=== PATIENT | male | born 1960 | race Caucasian/White ===

== ENCOUNTER 2017-02-28 09:00 | Inpatient (IN) | payer OTHER ==
[~2017-02-28] VITALS: Ht 188 cm; Wt 95.0 kg
[2017-02-28] MEDS ORDERED: ONDANSETRON 2MG/ML, 2ML ONE (10:37)
[2017-02-28] MEDS ORDERED: DEXAMETHASONE 4 MG/ML, 1ML ONE (10:37)
[2017-02-28] MEDS ORDERED: PROPOFOL 10 MG/ML, 20ML ONE (10:37)
[2017-02-28] MEDS ORDERED: CEFAZOLIN 1,000 MG ONE (10:37)
[2017-02-28] MEDS ORDERED: ROCURONIUM 10 MG/ML ONE (10:37)
[2017-02-28] MEDS ORDERED: MIDAZOLAM 1 MG/ML, 2ML ONE (15:00)
[2017-02-28] MEDS ORDERED: FENTANYL PF 250 MCG/5ML ONE (15:00)
[2017-02-28 15:26] VITALS: BP 130/85
[2017-02-28] MEDS ORDERED: BUPIVACAINE/PF-EPI 0.5% 1:200K ONE (16:15)
[2017-02-28] MEDS ORDERED: THROMBIN 5,000 UNIT VIAL TP ONE (16:16)
[2017-02-28] MEDS ORDERED: BACITRACIN 50,000 UNIT ONE (16:16)
[2017-02-28] MEDS ORDERED: PROMETHAZINE 25 MG/ML, 1ML IV PRN (17:30)
[2017-02-28] MEDS ORDERED: LABETALOL 5MG/ML, 20ML IV PRN (17:30)
[2017-02-28] MEDS ORDERED: ONDANSETRON 2MG/ML, 2ML IVPush PRN ×2 (17:30→18:30)
[2017-02-28] MEDS ORDERED: OXYcodone 5 MG/5 ML ORAL.SOL UDC PO PRN (17:30)
[2017-02-28] MEDS ORDERED: MEPERIDINE/PF 25MG/0.5ML IVPush PRN (17:30)
[2017-02-28] MEDS ORDERED: ACETAMINOPHEN 325 MG TABLET PO PRN (17:30)
[2017-02-28] MEDS ORDERED: hydrALAzine 20 MG/ML, 1ML IV PRN (17:30)
[2017-02-28] MEDS: PLEASE ENTER ALLERGIES MC SCH ×2 (18:00)
[2017-02-28] MEDS ORDERED: morphine SULFATE 10 MG/ML, 1ML IVPush PRN (18:30)
[2017-02-28] MEDS ORDERED: PHARMACY MAY ADJ FOR RENAL FX MC PRN (18:30)
[2017-02-28] MEDS ORDERED: METHOCARBAMOL 750 MG TABLET PO PRN (18:30)
[2017-02-28] MEDS ORDERED: PROMETHAZINE 25 MG/ML, 1ML IM PRN (18:30)
[2017-02-28] MEDS ORDERED: CYCLOBENZAPRINE 10 MG TABLET PO PRN (18:30)
[2017-02-28] MEDS ORDERED: DIPHENHYDRAMINE 50 MG/ML, 1ML IVPush PRN (18:30)
[2017-02-28] MEDS ORDERED: FENTANYL PF 100 MCG/2ML ONE ×2 (18:40→19:11)
[2017-02-28] MEDS ORDERED: HYDROmorphone 1 MG/ML, 1ML ONE (18:40)
[2017-02-28] MEDS ORDERED: METHOCARBAMOL 750 MG TABLET ONE ×2 (18:40→20:00)
[2017-02-28] MEDS ORDERED: OXYcodone 5 MG/5 ML ORAL.SOL UDC ONE (18:40)
[2017-02-28] MEDS ORDERED: ACETAMINOPHEN 325 MG TABLET ONE (18:40)
[2017-02-28] MEDS ORDERED: ACETAMINOPHEN 650 MG/20.3 ML UDC ONE (18:40)
[2017-02-28] MEDS: HYDROmorphone 1 MG/ML, 1ML IV PRN ×2 (18:42→18:55)
[2017-02-28] MEDS: FENTANYL PF 100 MCG/2ML IV PRN ×5 (18:48→20:33)
[2017-02-28 22:32] VITALS: BP 132/87
[2017-02-28] MEDS: D5%-0.9% NACL+KCL 20MEQ 1,000 ML IV SCH (23:09)
[2017-02-28] MEDS: SODIUM CHLORIDE FLUSH 10ML SYR IVF SCH (23:09)
[2017-02-28] MEDS: OXYcodone/APAP 5/325MG TABLET PO PRN ×2 (23:09→23:38)
[2017-02-28 23:51] VITALS: BP 134/89
[2017-03-01] MEDS: CEFAZOLIN PMX 1GM/50ML 50 ML IVPB SCH ×2 (00:53→08:33)
[2017-03-01] MEDS: PLEASE ENTER ALLERGIES MC SCH ×2 (02:00)
[2017-03-01] MEDS: OXYcodone/APAP 5/325MG TABLET PO PRN ×2 (03:34→07:56)
[2017-03-01 04:03] VITALS: BP 131/81
[2017-03-01 06:38] VITALS: BP 98/58
[2017-03-01] MEDS: D5%-0.9% NACL+KCL 20MEQ 1,000 ML IV SCH ×2 (10:38→20:44)
[2017-03-01] MEDS: SODIUM CHLORIDE FLUSH 10ML SYR IVF SCH ×2 (10:57→20:53)
[2017-03-01] MEDS: HYDROcodone/APAP 5/325 TABLET PO PRN ×3 (12:48→20:50)
[2017-03-01 13:20] VITALS: BP 102/63
[2017-03-01 19:27] VITALS: BP 102/60
[2017-03-02 00:39] VITALS: BP 108/60
[2017-03-02] MEDS: HYDROcodone/APAP 10/325 MG TABLET PO PRN ×2 (00:48→05:08)
[2017-03-02 07:44] VITALS: BP 120/71
[2017-03-02] MEDS: SODIUM CHLORIDE FLUSH 10ML SYR IVF SCH (09:00)
[2017-03-02 09:36] VITALS: BP 121/75
[2017-03-02] MEDS ORDERED: HYDR-3307 PO (10:19)
[2017-03-02] MEDS ORDERED: DOCU-30 PO (10:19)
== END 2017-03-02 10:25 | disposition home or self-care (01) | DRG 473 ==
LOC: ORIP 15:00 → 4NOR 20:25
PROVIDERS: ADMIT Neurological Surgery; ATTEND Neurological Surgery
PROC: 0RG2071 Fusion of 2 or more Cervical Vertebral Joints with Autologous Tissue Substitute, Posterior Approach, Posterior Column, Open Approach (ICD-10-PCS; 2017-02-28)
PROC: 0RB30ZZ Excision of Cervical Vertebral Disc, Open Approach (ICD-10-PCS; 2017-02-28)
PROC: 4A11X4G Monitoring of Peripheral Nervous Electrical Activity, Intraoperative, External Approach (ICD-10-PCS; 2017-02-28)
PROC: 01N10ZZ Release Cervical Nerve, Open Approach (ICD-10-PCS; principal; 2017-02-28 18:00)
DX: M48.02 Spinal stenosis, cervical region (principal); M53.2X2 Spinal instabilities, cervical region; G89.29 Other chronic pain; M54.2 Cervicalgia; M47.812 Spondylosis without myelopathy or radiculopathy, cervical region; Z98.1 Arthrodesis status; Z82.49 Family history of ischemic heart disease and other diseases of the circulatory system; Z80.9 Family history of malignant neoplasm, unspecified
CPT/HCPCS: 72040; C1713; J0690; J1100; J1170; J2250; J2405; J2550; J2704; J3010; C1762; J2270; J3480